=== PATIENT | male | born 1955 | race Caucasian/White ===

== ENCOUNTER 2016-03-19 10:41 | Observation (INO) | payer MEDICARE ==
[2016-03-19] MEDS ORDERED: ASPIRIN 81 MG TAB.CHEW PO ONE (10:49)
[2016-03-19] MEDS ORDERED: ASPIRIN 81 MG TAB.CHEW ONE (11:04)
[2016-03-19] MEDS ORDERED: NITROGLYCERIN 1 INCH PACKET TD ONE ×2 (11:04→11:09)
--- NOTE | 2016-03-19 11:04 | ERNOTE ---
Chest Pain/Cardiac HPI Date of Service: 03/19/16 Chief Complaint: Chest Pain Time Seen by Provider: 03/19/16 10:54 Source: patient Exam Limitations: no limitations Immunizations: IMMUNIZATION HX Immunizations Up to Date Yes History of Influenza Vaccine Yes Hx Pneumococcal Vaccination No Allergies/Adverse Reactions: Allergies lisinopril Adverse Reaction (Intermediate, Verified 03/19/16 10:54) FLIUD RETENTION pioglitazone HCl [From Actos] Adverse Reaction (Intermediate, Verified 03/19/16 10:54) fluid retention Home Medications: HOME MEDICATIONS Aspirin [Aspirin Chewable] 81 mg PO DAILY 06/20/12 [Last Taken Unknown] Hydrochlorothiazide [Hydrodiuril] 25 mg PO DAILY 06/20/12 [Last Taken Unknown] Losartan Potassium [Cozaar] 50 mg PO DAILY 06/20/12 [Last Taken Unknown] Multivitamin [Multivitamins] 1 each PO DAILY 06/20/12 [Last Taken Unknown] Insulin Aspart [Novolog] 55 unit SQ AC 08/17/12 [Last Taken Unknown] Glucagon,Human Recombinant [Glucagon Emergency Kit] 1 mg IJ PRN PRN 10/14/12 [ Last Taken Unknown] Insulin Glargine,Hum.rec.anlog [Lantus] 70 units SQ BID 09/11/14 [Last Taken Unknown] Nitroglycerin [Nitrostat] 0.4 mg SL Q5MIN PRN #0 btl 09/12/14 [Last Taken Unknown] Atorvastatin Calcium 80 mg PO HS 03/14/15 [Last Taken Unknown] Clopidogrel Bisulfate [Plavix] 75 mg PO DAILY 03/14/15 [Last Taken Unknown] metFORMIN HCL [Glucophage] 1,000 mg PO BID 03/14/15 [Last Taken Unknown] Insulin Aspart [Novolog] 1 units SC AC PRN 03/19/16 [Last Taken Unknown] Pain Score #1 Pain Score: 5 Narrative: 61yo M presents to the ER for evaluation of epigastric pain, present x3 hours. States he woke up with the pain this am and felt that it was indigestion. States he had eaten cheese at 0200 and thought this may have contributed to his symptoms. He attempted to improve symptoms by eating a bowl of cereal, but did not improve his symptoms. States pain initially 7/10, but 5/10 at present. Denies any radiation of pain. Although, he did have some pain in his back initially, but resolved with Ibuprofen and denies back pain at present. He does reports hx of ND and did have cardiac cath with 1 stent placed at [facility] in [place] 08/2014. BP elevated on arrival, pt states he did not take his BP meds this am due to pain. Date (Duration): 03/19/16 Time (Timing): 08:00 Timing: constant Location: epigastric Chest Pain Radiation: no radiation Modifying Factors - Improves: Present: nothing Modifying Factors - Worsens: Present: nothing Aspirin Treatment Today: no aspirin today Associated Symptoms: Present: diaphoresis. Absent: dizziness, syncope, cough, shortness of breath, fever/chills, palpitations, nausea, vomiting Prior Chest Pain/Cardiac Workup: Reports: heart attack - 1 yr ago Review of Systems - Review of Systems Constitutional: Present: diaphoresis. Absent: fever, chills Respiratory: Absent: shortness of breath, cough, wheezing Cardiology: Present: chest pain - epigastric pain, edema - chronic. Absent: palpitations, syncope Musculoskeletal: Present: back pain Skin: Absent: rash - Patient's Past Medical History Patient History - Medical: Anemia, Cataracts, Diabetes Type 2 Insulin Dependent , Kidney stone Patient History - Cancer: No Hx of Cancer Patient History - Surgical Procedures: Back Surgery, Other - Family History Adoption Family History - Medical: History Unknown - Social History Living Situations: home Smoking Status: Never smoker Alcohol Use: none Drug Use: none Physical Exam - Physical Exam General Appearance: Present: alert, obese, other - appears uncomfortable Respiratory: Present: no respiratory distress, normal breath sounds, no accessory muscle use, lungs clear. Absent: crackles, rhonchi, wheezing Cardiovascular/Chest: Present: regular rate, rhythm, no murmur Peripheral Pulses: N=norm/S=strong/W=weak/B=bound/A=absent: Dorsalis-pedis (R): Normal, Dorsalis-pedis (L): Normal Gastrointestinal/Abdominal: Present: normal bowel sounds, nontender, soft, other - obese Extremity Exam: Present: non-tender, pedal edema - 1+ (reports this as chronic) Neurological Exam: Present: alert, oriented ED Progress - Date and Time Seen: Date and Time: 03/19/16 1155: Spoke with Dr. Baxter, pt will be admitted to Tele observation. 03/19/16 11:35 Pt reports pain decreased to 2/10. Discussed with Dr. Mistry and due to pt cardiac hx, recommended admission for observation and repeat EKG, trop. This was discussed with the pt and he v/u. Metroprolol was held due to HR 50's - Results and Orders Patient's Lab Results:: I have reviewed the patient's lab results. Results and Orders: Laboratory Tests 03/19/16 11:02 WBC 6.3 RBC 3.67 L Hgb 11.4 L Hct 34.7 L MCV 94.6 MCH 31.1 H MCHC 32.9 RDW 13.9 MPV 10.3 H Laboratory Tests 03/19/16 11:02 Sodium 141 Potassium 4.0 Chloride 105 Carbon Dioxide 24.6 Anion Gap 15.4 H BUN 21 Creatinine 1.15 Est GFR (Non-Af Amer) 69 BUN/Creatinine Ratio 18.3 Random Glucose 285 H Calcium 9.3 Total Bilirubin 0.3 AST 21 Alkaline Phosphatase 123 Troponin I 0.024 Total Protein 6.9 - Vital Signs Patient's Vital Signs:: I have reviewed the patient's vital signs. Vital Signs: Vital Signs 03/19/16 10:48 Pulse Rate 66 Respiratory 16 Rate Blood Pressure 237/89 O2 Sat by Pulse 97 Oximetry Selected Entries 03/19/16 11:32 Pulse Rate 56 L Respiratory 17 Rate Blood Pressure 163/79 Blood Pressure 107 Mean O2 Sat by Pulse 96 Oximetry Oxygen Delivery Room Air Method - EKG EKG: NSR - with PVC EKG read: Reviewed by me - and Dr. Mistry - X-Ray X-Ray #1 X-Ray: chest Interpretation: Reviewed by me X-ray Comments: [facility] PATIENT RADIOLOGY STUDY REPORT Patient Patient Name:EMERALD DOMÍNGUEZ Date: 1955 Sex: M Order Number: [id number] Unique Exam ID: [id number] Exam Requested: CXRPALAT - Chest PA Lateral * Date Scheduled: Study Priority: Requesting Service: Requesting Physician: Maria Dolores Greene Reason for Exam: Radiological Report : Exam Date: 03/19/2016 10:50 Ordering Physician: Maria Dolores Greene HISTORY: Chest pain TWO VIEW CHEST Comparison: 03/14/2015 and 09/11/2014 Technique: Upright frontal and lateral views of the chest were obtained. Findings: The cardiac silhouette is within normal limits of size. The mediastinum and hilum are with in normal limits. The lung bo demonstrate fibrotic changes in the bases, similar to the prior study. I do not see evidence for a definable infiltrate, effusion, or pulmonary edema. IMPRESSION: 1. NO ACUTE CARDIOPULMONARY PROCESS. Electronically signed by Adan Hedrick M.D.. Approved by: Approval Date: 03-19-2016 Approval Time: 11:31 AM THIS REPORT WAS RECEIVED FROM THE [facility] [facility] [facility] - Progress/Reassessment Chief Complaint: Chest Pain Progress:: Improved Departure - Departure Clinical Impression: Chest pain Qualifiers: Chest pain type: unspecified Qualified Code(s): R07.9 - Chest pain, unspecified Disposition: [facility] Condition: Stable
[2016-03-19 11:08] LABS: Hematocrit 34.7 % (42.0-52.0); Hemoglobin 11.4 gm/dL (13.5-18.0); Mean Cell Volume 94.6 fl (78-100); Mean Corpuscular Hemoglobin 31.1 pg (27-31); Mean Corpuscular Hgb Conc 32.9 g/dl (32-36); Mean Platelet Volume 10.3 fl (6.0-9.5); Neutrophil % 62.4 % (42-75.0); Platelet Count 241 K/mm3 (150-450); Red Blood Count 3.67 M/mm3 (4.7-6.0); Red Cell Distribution Width 13.9 % (11.5-14.0); White Blood Count 6.3 K/mm3 (4.0-10.5)
[2016-03-19] MEDS: METOPROLOL TARTRATE 25 MG TABLET PO ONE ×2 (11:09→11:14)
[2016-03-19] MEDS ORDERED: METOPROLOL TARTRATE 25 MG TABLET ONE (11:09)
[2016-03-19 11:27] LABS: INR 0.96 INR (0.90-1.10); Partial Thrombolplastin Time 23.8 Seconds (24-32)
[2016-03-19 11:29] LABS: Albumin * 3.4 gm/dl (3.4-5.0); Anion Gap 15.4 mmol/L (6.8-13.8); BUN/Creatinine Ratio 18.3 (9.0-21.6); Bilirubin, Total 0.3 mg/dL (0.0-1.1); Ca. Corrected For Albumin 9.5 mg/dL (8.4-10.2); Calcium * 9.3 mg/dL (7.9-10.9); Carbon Dioxide 24.6 mmol/L (24-32.6); Total Protein 6.9 gm/dL (6.2-8.2)
[2016-03-19 11:32] LABS: Troponin I 0.024 ng/ml (0.00-0.10)
[2016-03-19 15:01] VITALS: BP 134/62
--- NOTE | 2016-03-19 17:53 | HP ---
Chief Complaint - Chief Complaint Date of Service: 03/19/16 Time of Service: 16:55 Chief Complaint: Chest Pain History of Present Illness: Beto is a 61 yo male with CAD with prior stent in 2014 who presents to the [facility] ER with epigastric pain. He awoke with chest pain. Reports ate cheese at 2am, reports activities yesterday were normal. No recent change in medication. No cough. No radiation of pain. No sweats, nausea, or shortness of breath. He presented to the ER and was given aspirin and nitro. Pain gradually resolved, he is unsure if it was better from the medication or resolved on its own. He currently feels well without symptoms. - Patient's Past Medical History Patient History - Medical: Anemia, Cataracts, Diabetes Type 2 Insulin Dependent , Kidney stone, Obesity Patient History - Cardiac/Respiratory: Myocardial Infarction Patient History - Cancer: No Hx of Cancer Patient History - Surgical Procedures: Back Surgery, Colonoscopy - Family History Adoption Family History - Medical: History Unknown - Social History Living Situations: home Smoking Status: Never smoker Have you smoked in the past 12 months: No Do you dip or chew tobacco: No Patient requests Smoking Cessation Consult: No Initiate information on Smoking Cessation: No Alcohol Use: none Drug Use: none Review Of Systems (GEN) - Review of Systems Generalized/Overall Review: Absent: Weakness, Chills, Fever EENTM: Present: No Symptoms Reported Respiratory: Absent: Cough, Shortness of Breath Cardiac: Present: Chest Pain. Absent: Edema, Palpitations Abdominal: Absent: Nausea, Vomiting Genitourinary: Present: No Symptoms Reported Musculoskeletal: Present: Back Pain Neurological: Present: No Symptoms Reported Skin: Present: No Symptoms Reported Endocrine: Present: No Symptoms Reported Misc: All systems neg except as marked Allergies/Adverse Reactions: Allergies Allergy/AdvReac Type Severity Reaction Status Date / Time [id number] Reductase AdvReac Severe Muscle Pain Verified 03/19/16 13:34 Inhibitor lisinopril AdvReac Intermediate FLIUD Verified 03/19/16 13:34 RETENTION pioglitazone HCl [From Actos] AdvReac Intermediate fluid Verified 03/19/16 13:34 retention Home Medications: HOME MEDICATIONS Aspirin [Aspirin Chewable] 81 mg PO DAILY 06/20/12 [Last Taken Unknown] Hydrochlorothiazide [Hydrodiuril] 25 mg PO DAILY 06/20/12 [Last Taken Unknown] Losartan Potassium [Cozaar] 50 mg PO DAILY 06/20/12 [Last Taken Unknown] Multivitamin [Multivitamins] 1 each PO DAILY 06/20/12 [Last Taken Unknown] Insulin Aspart [Novolog] 55 unit SQ AC 08/17/12 [Last Taken Unknown] Glucagon,Human Recombinant [Glucagon Emergency Kit] 1 mg IJ PRN PRN 10/14/12 [ Last Taken Unknown] Insulin Glargine,Hum.rec.anlog [Lantus] 85 units SQ BID 09/11/14 [Last Taken Unknown] Nitroglycerin [Nitrostat] 0.4 mg SL Q5MIN PRN #0 btl 09/12/14 [Last Taken Unknown] Atorvastatin Calcium 100 mg PO HS 03/14/15 [Last Taken Unknown] metFORMIN HCL [Glucophage] 1,000 mg PO BID 03/14/15 [Last Taken Unknown] Calcium Carb&Cit/D3/Phytostrol [Citracal D + Heart Health Tab] 1 each PO DAILY 03/19/16 [Last Taken Unknown] Exam - Exam Vital Signs: Vital Signs - Last Taken Temp 36.4 C L 03/19/16 14:10 Pulse 51 L 03/19/16 14:10 Resp 18 03/19/16 14:10 BP 134/62 03/19/16 14:10 Pulse Ox 98 03/19/16 14:10 Constitutional: Present: Alert, Oriented x3, Cooperative ENT Exam: Present: hearing grossly normal Eye Exam: bilateral eye: normal inspection Respiratory: Present: lungs clear, normal breath sounds Cardiovascular/Chest: Present: regular rate, rhythm, no murmur Abdomen: Present: Normal bowel sounds, soft, nontender, nondistended, no rebound tenderness, no hepatospenomegaly Extremity: Present: normal range of motion, non-tender, normal inspection, no pedal edema Skin Exam: Present: normal color, warm/dry, no cyanosis Neurologic: Present: alert, normal mood/affect, oriented x 3 Appearance: Present: appropriate appearance, appropriate insight Thoughts: Present: normal thought pattern, no apparent hallucination Diagnostic Studies: Laboratory Results WBC 6.3 K/mm3 (4.0-10.5) 03/19/16 11:02 RBC 3.67 M/mm3 (4.7-6.0) L 03/19/16 11:02 Hgb 11.4 gm/dL (13.5-18.0) L 03/19/16 11:02 Hct 34.7 % (42.0-52.0) L 03/19/16 11:02 MCV 94.6 fl (78-100) 03/19/16 11:02 MCH 31.1 pg (27-31) H 03/19/16 11:02 MCHC 32.9 g/dl (32-36) 03/19/16 11:02 RDW 13.9 % (11.5-14.0) 03/19/16 11:02 Plt Count 241 K/mm3 (150-450) 03/19/16 11:02 MPV 10.3 fl (6.0-9.5) H 03/19/16 11:02 Immature Gran % (Auto) 0.30 % (0.001-0.429) 03/19/16 11:02 Immature Gran # (Auto) 0.02 K/mm3 (0.000-0.0310) 03/19/16 11:02 Neutrophils % 62.4 % (42-75.0) 03/19/16 11:02 Lymphocytes % 25.6 % (20-51) 03/19/16 11:02 Monocytes % 5.8 % (0.0-9) 03/19/16 11:02 Eosinophils % 4.6 % (0.0-3.0) H 03/19/16 11:02 Basophils % 1.3 % (0.0-1.0) H 03/19/16 11:02 Nucleated RBC % 0.0 k/mm3 (0-1) 03/19/16 11:02 Neutrophils # 4.0 K/mm3 (1.3-6.0) 03/19/16 11:02 Lymphocytes # 1.6 k/mm3 (1.5-3.5) 03/19/16 11:02 Monocytes # 0.4 k/mm3 (0.0-1.0) 03/19/16 11:02 Eosinophils # 0.3 k/mm3 (0.0-0.7) 03/19/16 11:02 Absolute Basophils 0.1 k/mm3 (0.0-0.1) 03/19/16 11:02 PT 10.0 Seconds (9.4-11.4) 03/19/16 11:02 INR (Anticoag Therapy) 0.96 INR (0.90-1.10) 03/19/16 11:02 PTT (Amelie) 23.8 Seconds (24-32) L 03/19/16 11:02 Sodium 141 mmol/L (132-142) 03/19/16 11:02 Plasma Sodium 144 mmol/L (130-142) H 03/19/16 11:02 Potassium 4.0 mmol/L (3.4-4.6) 03/19/16 11:02 Chloride 105 mmol/L (97-106) 03/19/16 11:02 Carbon Dioxide 24.6 mmol/L (24-32.6) 03/19/16 11:02 Anion Gap 15.4 mmol/L (6.8-13.8) H 03/19/16 11:02 BUN 21 mg/dL (6-23) 03/19/16 11:02 Creatinine 1.15 mg/dL (0.4-1.4) 03/19/16 11:02 Est GFR (Non-Af Amer) 69 mL/min (60-130) 03/19/16 11:02 BUN/Creatinine Ratio 18.3 (9.0-21.6) 03/19/16 11:02 Random Glucose 285 mg/dL (70-110) H 03/19/16 11:02 Calcium 9.3 mg/dL (7.9-10.9) 03/19/16 11:02 Calcium Adj for Albumin 9.5 mg/dL (8.4-10.2) 03/19/16 11:02 Total Bilirubin 0.3 mg/dL (0.0-1.1) 03/19/16 11:02 AST 21 U/L (0-48) 03/19/16 11:02 ALT 42 U/L (19-67) 03/19/16 11:02 Alkaline Phosphatase 123 U/L (50-170) 03/19/16 11:02 Troponin I 0.024 ng/ml (0.00-0.10) 03/19/16 17:10 Total Protein 6.9 gm/dL (6.2-8.2) 03/19/16 11:02 Albumin 3.4 gm/dl (3.4-5.0) 03/19/16 11:02 Assessment/Plan - Assessment/Plan (1) Chest pain Assessment: Beto is a 61 yo male with chest pain of unknown origin. Suspect heart burn/reflux as cause. Will obtain serial troponins and monitor on telemetry. If ruled out for acute MN will plan to discharge to home. Will admit to observation. Problem: Acute
--- NOTE | 2016-03-19 17:55 | DS ---
(1) Chest pain Diagnosis(s): Beto is a 61 yo male that was admitted for chest pain with history of prior [place]. Initial workup was negative for acute AZ. He was admitted to observation. Serial troponins showed no acute elevation and there was no change on telemetry or EKG. He will be discharged to home. Problem: Acute Qualifiers: Chest pain type: other chest pain Qualified Code(s): R07.89 - Other chest pain; R07.8 - Other chest pain Procedures Performed: none Discharge Disposition: Home self care Disposition: Home self-care Condition: Good Discharge Activity: Activity as tolerated Discharge Diet: Consistent carbs Referrals: Carlos Baxter DO [Primary Care Provider] - (as needed) Problem Oriented Discharge Instructions to Patient/Family: Chest Pain Observation Complete Home Medications List: Complete Home Medication List: Aspirin [Aspirin Chewable] 81 mg PO DAILY 06/20/12 Hydrochlorothiazide [Hydrodiuril] 25 mg PO DAILY 06/20/12 Losartan Potassium [Cozaar] 50 mg PO DAILY 06/20/12 Multivitamin [Multivitamins] 1 each PO DAILY 06/20/12 Insulin Aspart [Novolog] 55 unit SQ AC 08/17/12 Glucagon,Human Recombinant [Glucagon Emergency Kit] 1 mg IJ PRN PRN 10/14/12 Insulin Glargine,Hum.rec.anlog [Lantus] 85 units SQ BID 09/11/14 Nitroglycerin [Nitrostat] 0.4 mg SL Q5MIN PRN #0 btl 09/12/14 Atorvastatin Calcium 100 mg PO HS 03/14/15 metFORMIN HCL [Glucophage] 1,000 mg PO BID 03/14/15 Calcium Carb&Cit/D3/Phytostrol [Citracal D + Heart Health Tab] 1 each PO DAILY 03/19/16
== END 2016-03-19 18:40 | disposition home or self-care (01) ==
LOC: ER 10:41 → MS 12:01
PROVIDERS: ADMIT Family Medicine; ATTEND Family Medicine
DX: R07.9 Chest pain, unspecified (principal)
CPT/HCPCS: 36415; 71020; 80053; 84484; 85025; 85610; 85730; 93005; 99284; G0378

== ENCOUNTER 2016-12-06 13:34 | Emergency (ER) | payer MEDICARE ==
[2016-12-06 13:49] VITALS: BP 144/50
== END 2016-12-06 13:47 | disposition home or self-care (01) ==
LOC: ER 13:34
DX: Z13.6 Encounter for screening for cardiovascular disorders (principal)

== ENCOUNTER 2017-05-10 06:40 | Inpatient (IN) | payer MEDICARE ==
[~2017-05-10 06:40] MED LIST: MORPHINE SULFATE 15 MG TABLET.SA PO PRN; ROPIVACAINE HCL/PF 100 MG, KETOROLAC TROMETHAMINE 30 MG, EPINEPHrine 0.2 MG in NORMAL S... IJ PRN; TRANEXAMIC ACID 1,000 MG in NORMAL SALINE 100 ML IV PRN; ceFAZolin SODIUM 1 GM VIAL IV PRN
[2017-05-10] MEDS: RINGER'S SOLUTION,LACTATED 1,000 ML IV PRN ×2 (07:13→07:40)
[2017-05-10] MEDS ORDERED: RINGER'S SOLUTION,LACTATED 1,000 ML IV ONE ×3 (08:30→09:45)
--- NOTE | 2017-05-10 10:19 | POSTOP NO ---
Date of Surgery: 05/10/17 Patient Tolerated the Procedure: Well Post Operative Diagnosis/Procedures: Shoe Sewing Machine Operator And Tender: Saul Vickers PA-C Post-operative Diagnosis: Right knee degenerative joint disease Finding: Above Procedure: Right total knee arthroplasty Estimated Blood Loss: Minimal Specimens: Bone for disposal
--- NOTE | 2017-05-10 10:20 | OR ---
Operative Report - Dictated Report Narrative: Date: 05/10/2017 Preoperative diagnosis: Right Knee degenerative joint disease. Postoperative diagnosis: Right Knee degenerative joint disease. Procedure: Right Total knee arthroplasty. Surgeon: Mark Wilkinson M.D. Crab Fisher: Saul Vickers PA-C Anesthesia: Spinal with regional block and local periarticular joint injection. Complications: None Specimens: Bone for disposal. Estimated blood loss: Minimal. Tourniquet time: 110 Minutes at 350 millimeters of mercury. Retained implants: Depuy Attune size 8 right lugged cemented posterior stabilized femoral component. Size 7 fixed-bearing cemented tibial platform. 8 by 5 millimeter posterior stabilized cross-linked tibial insert. 41 millimeter medialized patella button. Indications: Mr. Cabezas is a 62-year-old gentleman who has had long-standing right knee pain. This patient was followed in my clinic for period of time with significant complaints of right knee pain consistent with arthritic changes. He had failed conservative measures including, but not limited to, activity modification, passage of time, medications, and other conservative measures. Patient wished to proceed with surgical treatment. The risks, benefits, and alternatives were discussed in clinic. The risks of , blood clots, bleeding, infection, nerve/tendon blood vessel/ injury, malposition of components, intraoperative fracture, postoperative limited range of motion, persistent pain, failure of components, and need for additional procedures. Patient wished to proceed consent was obtained after answering all questions. Procedure: After marking the correct extremity on the floor, the patient was taken to the operating room. A timeout was performed. IV antibiotics consisting of Ancef were administered prior to the procedure. A regional followed by spinal anesthetic was induced by anesthesia, per my request, on the operative table with all bony prominences well-padded. Harris catheter was placed, and a bump was placed under the operative side buttock. SCDs and VON hose were utilized on the nonoperative leg. A well-padded tourniquet was applied to the operative thigh. The operative leg was then pre-scrubbed with alcohol prepped, and draped in a standard sterile fashion. After exsanguinating the extremity with an Esmarch bandage, the tourniquet was inflated. After marking out the anterior knee for standard incision centered over the patella, the skin was incised and dissected down to the joint retinaculum. The joint retinaculum was marked out as well as the horizontal axis of the patella, and a standard medial parapatellar arthrotomy was then made. The most proximal aspect of the quadriceps tendon and the patella tendon insertion were protected from release. A partial synovectomy was performed as well as a resection of the infrapatellar fat pad. The distal femoral fat pad proximal to the trochlea was also resected using cautery. The soft tissues were elevated off the medial aspect of the proximal tibia using a Douglas elevator ensuring that we did not transect the medial collateral ligament. Upon initial evaluation range of motion was approximately 10 degrees to 130 degrees of flexion. There were signs of advanced arthrosis in the medial, lateral, and patellofemoral joint spaces. There were large marginal osteophytes which were removed with a rongeur. The knee was hyperflexed and the patella was tucked laterally. Protecting the surrounding soft tissues with Homans, an entry drill was placed down the femoral canal using Whitesides line for guidance into the entry point. The intramedullary femoral alignment adina was utilized in order to cut the distal femur in 5 degrees of valgus resecting 10 millimeters of bone. Next the distal femur was sized to a size 8. A posterior referencing guide was utilized to place the distal femoral cutting block in 3 degrees of external rotation. This was pinned into place. The rotation was confirmed both visually and based on anatomic landmarks. The 4 in 1 cutting jig of the appropriate size was utilized in order to make all bony cuts. The angle wing was used to ensure no notching. Retractors were utilized in order to protect surrounding soft tissues. This cut did not result in any excessive notching. We then cut the box centered over the distal femur. This allowed for resection of the anterior and posterior cruciate ligaments. I then turned my attention to the preparation of the tibia. Using an extra medullary tibial alignment adina, 4 millimeters of bone was resected off the medial articular surface. This was made perpendicular to the mechanical axis of the joint with the alignment adina centered over the ankle mortise. The alignment adina was checked and was noted to be parallel to the mechanical axis, centered over the medial one third of the tibial tubercle, paralleling the anterior surface of the tibia. We then turned our attention to the remaining meniscus and soft tissues. These were removed while protecting the surrounding ligaments and soft tissues. The marginal osteophytes off the anterior, posterior, medial, lateral aspects of the femur and tibia were removed. The tibia was sized out to a size 7. Next the tibia was drilled and punched in an externally rotated position. Next the trial femur and a series of tibial inserts were utilized in order to allow for full extension and maximal flexion. It was found that a 5 millimeter insert gave the best range of motion and stability at multiple flexion points as well as at full extension there was less than 2 mm of gapping both medially and laterally. There is minimal anterior translation with the knee at 90 degrees of flexion and no signs of being able to dislocate the knee. The patella was then prepared. The initial thickness was 25 millimeters. This was reamed down to 15 millimeters parallel to the anterior surface of the patella. It was sized out to a size 41 medialized patella button. This was then drilled and trialed. Without any medial restraint the patella tracked appropriately and did not sublux or dislocate. At this point, it was felt these were the appropriate sized implants, and all trials were removed. The standard periarticular joint injection consisting of ropivacaine, Toradol, and epinephrine were injected into the periarticular joint tissues. The bony surfaces were thoroughly irrigated with a pulsatile- suction saline irrigation device. A bone plug from the prior resected anterior chamfer cut was placed into the drill hole at the distal femur. The bony surfaces were then dried in preparation for placement of the implants. The cement was vacuum mixed per the sterile processing manager's instructions. The cement was placed on the dry bony surfaces and posterior aspect of the implants. The implants were impacted into place, removing all extruded cement. At this point anesthesia administered tranexamic acid per protocol intravenously. The knee was placed in extension with axial loading with the trial insert while the cement cured. Once the cement cured, all remaining extruded cement was removed. The knee was placed through a range of motion with the trial insert to ensure appropriate range of motion and stability. Final range of motion was approximately 0 to 130 degrees. The knee was again thoroughly irrigated with pulsatile saline lavage. The final polyethylene insert was then impacted into place ensuring no retained soft tissues. The remaining periarticular joint injection was injected. A medium Hemovac drain was placed exiting superior laterally. The knee was then placed over a triangle and the arthrotomy was closed with interrupted #1 Vicryl after thoroughly irrigating the joint. The deep and subcutaneous tissues were closed with interrupted 0 and 3-0 Vicryl respectively. Skin was closed with a running subcutaneous 3-0 Monocryl and Prineo Dermabond dressing. 4 x 4's, Sof-Rol, and a full leg Bao wrap were applied. All sponge, needle, blade, and instrument counts were correct prior to closing the wounds. Postoperative condition: The patient was awoken and transferred to the postanesthesia care unit in stable condition. Plan is to be admitted to the inpatient medical/surgical floor postoperatively for 24 hours of IV antibiotics , physical therapy, occupational therapy, and medical comanagement. Patient will be weightbearing as tolerated with range of motion as tolerated. DVT prophylaxis will be with SCDs, VON hose, and pharmacological anticoagulation. Anticipated hospital stay is approximately 1-3 days.
[2017-05-10] MEDS ORDERED: ACETAMINOPHEN 500 MG TABLET PO PRN (10:21)
[2017-05-10] MEDS ORDERED: PROMETHAZINE HCL 5 MG in DEXTROSE 5 % IN WATER 50 ML IV PRN ×2 (10:21)
[2017-05-10] MEDS ORDERED: ONDANSETRON HCL/PF 2 MG/ML VIAL IV PRN (10:21)
[2017-05-10] MEDS ORDERED: ZOLPIDEM TARTRATE 5 MG TABLET PO PRN (10:21)
[2017-05-10] MEDS ORDERED: MAG HYDROX/ALUMINUM HYD/SIMETH 30 ML UDC PO PRN (10:21)
[2017-05-10] MEDS ORDERED: RINGER'S SOLUTION,LACTATED 1,000 ML IV PRN (10:21)
[2017-05-10] MEDS ORDERED: HYDROmorphone HCL 2 MG/ML VIAL IV PRN (10:21)
[2017-05-10] MEDS ORDERED: MAGNESIUM HYDROXIDE 30 ML UDC PO PRN (10:21)
[2017-05-10] MEDS ORDERED: diphenhydrAMINE HCL 50 MG/ML VIAL IV PRN (10:21)
[2017-05-10] MEDS ORDERED: NITROGLYCERIN 0.4 MG/TAB BTL SL PRN (10:22)
--- NOTE | 2017-05-10 10:52 | OR ---
Anesthesia Procedure Note - Anesthesia Procedure Note Date of Service: 05/10/17 Narrative: Vital Signs - Last Taken Temp 36.5 C 05/10/17 10:30 Pulse 60 05/10/17 10:40 Resp 14 05/10/17 10:40 BP 109/50 05/10/17 10:40 Pulse Ox 97 05/10/17 10:40 O2 Oxygen Delivery Method Nasal Cannula 05/10/17 10:49 ANESTHESIA PROCEDURE NOTE Date of Procedure: 05/10/2017. Time of procedure: 739. Performed by: Dilip Dixon CRNA [employer]ling [employer] Supervisor: None. Preprocedure diagnosis: Right knee degenerative joint disease. Post procedure diagnosis: Same. Procedure: Right ultrasound guided adductor canal block for postoperative analgesia. Indications: The patient is a 62 -year-old male, requesting a right ultrasound- guided adductor canal block for postoperative analgesia related to right knee arthroplasty. Findings: See below. Details of the procedure: The tissue over the intended target site was cleansed with ChloraPrepand draped in a sterile fashion. 2 ml Lidocaine 1 % was infiltrated to the skin and subcutaneous tissue at the intended target site. Under sterile technique and ultrasound guidance a 18-gauge Tuohy needle was inserted through the right sartorius muscle to the saphenous nerve just anterior and medial to the femoral artery and vein. 15 mL's of 0.5% bupivacaine was injected after negative aspiration for blood. Needle tip and spread of local anesthetic surrounding the saphenous nerve was observed throughout the injection with real time ultrasound visualization. The Tuohy needle was removed intact. No complications were noted. The images were retained in the Hospital medical database . EBL: Minimal. Fluids: N/A. Specimen: N/A. Post procedure condition: The patient tolerated the procedure well. No complications were noted. Thank you for this consultation. Dilip Dixon CRNA
[2017-05-10] MEDS ORDERED: INSULIN LISPRO 100 UNITS/ML VIAL SC SCH ×2 (11:00→12:45)
[2017-05-10] MEDS: KETOROLAC TROMETHAMINE 15 MG/ML VIAL IV SCH ×3 (11:15→23:03)
[2017-05-10] MEDS ORDERED: INSULIN GLARGINE,HUM.REC.ANLOG 100 UNITS/ML VIAL SC SCH ×2 (13:45→21:00)
[2017-05-10] MEDS: ceFAZolin SODIUM 1 GM in DEXTROSE 5 % IN WATER 50 ML IV SCH ×4 (14:10→19:12)
[2017-05-10] MEDS: oxyCODONE HCL/ACETAMINOPHEN 1 TAB TABLET PO PRN (15:42)
--- NOTE | 2017-05-10 16:33 | PN ---
Subjective - Date and Time Seen Date: 05/10/17 Time: 16:33 Subjective Narrative: Doing well. Blood sugars controlled. Pain controlled. Denies f/c/n/v. Objective - Vitals Vitals: Last Vital Signs Temp 36.4 C L 05/10/17 16:02 Pulse 56 L 05/10/17 16:02 Resp 14 05/10/17 16:02 BP 111/57 05/10/17 16:02 Pulse Ox 98 05/10/17 16:02 - Exam Constitutional: Present: Alert, Oriented x3, Cooperative, No distress Respiratory: Present: lungs clear, normal breath sounds Cardiovascular/Chest: Present: regular rate, rhythm, no murmur Abdomen: Present: Normal bowel sounds, soft, nontender, nondistended Cauti Physician Documentation - Urinary Catheter Management Urethral (Harris) Date of Insertion: 05/10/17 Time of Insertion: 08:15 Assessment/Plan Plan Narrative: Doing well medically. Sugars under fair control. No medical concerns. Ok with discharge once ok per PT and ortho. - Problems/Diagnosis (1) Acute blood loss anemia Problem: Acute (2) Status post total right knee replacement Problem: Acute
[2017-05-10] MEDS: INSULIN LISPRO 100 UNITS/ML VIAL SC SCH (17:14)
[2017-05-10] MEDS: CLOBETASOL PROPIONATE 15 APPL TUBE TP SCH (20:36)
[2017-05-10] MEDS: SENNOSIDES/DOCUSATE SODIUM 1 TAB TABLET PO SCH (20:36)
[2017-05-10] MEDS: MORPHINE SULFATE 15 MG TABLET.SA PO SCH (20:36)
[2017-05-10] MEDS: ATORVASTATIN CALCIUM 40 MG TABLET PO SCH (20:37)
[2017-05-10] MEDS ORDERED: INSULIN GLARGINE,HUM.REC.ANLOG 100 UNITS/ML VIAL SC ONE (21:00)
[2017-05-11] MEDS: ceFAZolin SODIUM 1 GM in DEXTROSE 5 % IN WATER 50 ML IV SCH ×2 (01:14)
[2017-05-11] MEDS: KETOROLAC TROMETHAMINE 15 MG/ML VIAL IV SCH ×4 (05:23→23:19)
[2017-05-11 05:57] LABS: Hematocrit 33.8 % (42.0-52.0); Mean Cell Volume 94.7 fl (78-100); Mean Corpuscular Hemoglobin 30.8 pg (27-31); Mean Corpuscular Hgb Conc 32.5 g/dl (32-36); Mean Platelet Volume 10.4 fl (6.0-9.5); Platelet Count 255 K/mm3 (150-450); Red Blood Count 3.57 M/mm3 (4.7-6.0); Red Cell Distribution Width 13.9 % (11.5-14.0); White Blood Count 10.6 K/mm3 (4.0-10.5)
[2017-05-11 06:09] LABS: Anion Gap 11.8 mmol/L (6.8-13.8); BUN/Creatinine Ratio 22.6 (9.0-21.6); Calcium * 8.6 mg/dL (7.9-10.9); Carbon Dioxide 29.3 mmol/L (24-32.6); Estimated Creat Clear 67.9; Potassium 4.1 mmol/L (3.4-4.6)
[2017-05-11] MEDS: INSULIN LISPRO 100 UNITS/ML VIAL SC SCH ×3 (07:23→17:38)
[2017-05-11] MEDS: oxyCODONE HCL/ACETAMINOPHEN 1 TAB TABLET PO PRN ×2 (07:23→12:10)
[2017-05-11] MEDS ORDERED: ONDANSETRON 4 MG TAB.RAPDIS PO PRN (07:30)
--- NOTE | 2017-05-11 08:04 | PN ---
Subjective - Date and Time Seen Date: 05/11/17 Time: 08:01 Subjective Narrative: Subjective: Reports mild pain and some difficulty sleeping. Was able to walk in the room with therapy. Pain is well-controlled. Voiding without any complications. Tolerating by mouth intake. Denies any nausea or vomiting. Denies calf pain. Physical exam: Alert and oriented to person, place and time Right lower Extremity: Palpable dorsalis pedis pulse. Sensation grossly intact to light touch. Dressings clean dry. Able to flex and extend ankle and toes. No excessive drainage. Calf and thigh are soft and nontender. Assessment: Postop day 1 status post right total knee arthroplasty. Plan: Due to the need for pain control, post-operative limited mobility, protection of the surgical site and joint, monitoring of the wound, and the management of chronic medical conditions, he requires continued inpatient care. Continue with physical and occupational therapy weightbearing as tolerated. Continue with anticoagulation. 24 hours postoperative prophylactic antibiotics. Pain control with goal to rely on oral medications. Continue bowel regimen. Will need 6 weeks with walker or assitive device to protect joint while ambulating during the recovery process. Discharge planning. Discontinue Harris catheter. She had noted drainage from his drain and we'll clamp his prior and monitor for decreased output before pulling. Objective - Vitals Vitals: Last Vital Signs Temp 36.7 C 05/11/17 05:43 Pulse 75 05/11/17 05:43 Resp 18 05/11/17 05:43 BP 159/78 05/11/17 05:43 Pulse Ox 97 05/11/17 05:43 - Abnormal Lab Findings Abnormal Lab Findings: Abnormal Lab Results 05/11/17 05/11/17 Range/Units 05:20 05:20 WBC 10.6 H (4.0-10.5) K/mm3 RBC 3.57 L (4.7-6.0) M/mm3 Hgb 11.0 L (13.5-18.0) gm/dL Hct 33.8 L (42.0-52.0) % MPV 10.4 H (6.0-9.5) fl BUN 28 H D (6-23) mg/dL BUN/Creatinine Ratio 22.6 H (9.0-21.6) Random Glucose 128 H (70-110) mg/dL Cauti Physician Documentation - Urinary Catheter Management Urethral (Harris) Date of Insertion: 05/10/17 Time of Insertion: 08:15
[2017-05-11] MEDS: CLOBETASOL PROPIONATE 15 APPL TUBE TP SCH ×2 (08:19→20:52)
[2017-05-11] MEDS: HYDROCHLOROTHIAZIDE 25 MG TABLET PO SCH (08:20)
[2017-05-11] MEDS: MULTIVITAMINS 1 CAP CAPSULE PO SCH (08:20)
[2017-05-11] MEDS: TAZAROTENE TP SCH (08:20)
[2017-05-11] MEDS: LOSARTAN POTASSIUM 50 MG TABLET PO SCH (08:20)
[2017-05-11] MEDS: INSULIN GLARGINE,HUM.REC.ANLOG 100 UNITS/ML VIAL SC SCH ×2 (08:24→20:53)
[2017-05-11] MEDS: MORPHINE SULFATE 15 MG TABLET.SA PO SCH ×2 (08:29→20:51)
[2017-05-11] MEDS: ENOXAPARIN SODIUM 40 MG/0.4 ML SYRG SC SCH (10:02)
[2017-05-11] MEDS: ATORVASTATIN CALCIUM 40 MG TABLET PO SCH (20:51)
[2017-05-11] MEDS: SENNOSIDES/DOCUSATE SODIUM 1 TAB TABLET PO SCH (20:51)
[2017-05-12] MEDS: KETOROLAC TROMETHAMINE 15 MG/ML VIAL IV SCH (04:38)
[2017-05-12] MEDS: oxyCODONE HCL/ACETAMINOPHEN 1 TAB TABLET PO PRN ×4 (04:58→18:17)
[2017-05-12] MEDS: INSULIN LISPRO 100 UNITS/ML VIAL SC SCH ×3 (07:23→17:36)
[2017-05-12] MEDS: MORPHINE SULFATE 15 MG TABLET.SA PO SCH (09:45)
[2017-05-12] MEDS: LOSARTAN POTASSIUM 50 MG TABLET PO SCH (09:45)
[2017-05-12] MEDS: HYDROCHLOROTHIAZIDE 25 MG TABLET PO SCH (09:45)
[2017-05-12] MEDS: MULTIVITAMINS 1 CAP CAPSULE PO SCH (09:45)
[2017-05-12] MEDS: INSULIN GLARGINE,HUM.REC.ANLOG 100 UNITS/ML VIAL SC SCH (09:46)
[2017-05-12] MEDS: ENOXAPARIN SODIUM 40 MG/0.4 ML SYRG SC SCH (09:47)
[2017-05-12] MEDS: CLOBETASOL PROPIONATE 15 APPL TUBE TP SCH (09:47)
[2017-05-12] MEDS: TAZAROTENE TP SCH (09:47)
--- NOTE | 2017-05-12 14:00 | DS ---
(1) Status post total right knee replacement Problem: Acute (2) Acute blood loss anemia Problem: Acute (3) Diabetes mellitus treated with insulin and oral medication Problem: Chronic (4) Hyperlipidemia Problem: Chronic (5) Hypertension Problem: Chronic (6) Morbid obesity Problem: Chronic Description of Stay: Mr. Cabezas was admitted to the floor after undergoing right total knee arthroplasty. Tolerated this well. Was admitted to the floor postoperatively for 24 hours of IV antibiotics, pain control, medical comanagement, and occupational and physical therapy. OT and PT were consulted to assist with activities of daily living and ambulation. Was made weightbearing as tolerated with range of motion as tolerated. Pain was initially controlled with IV regimen. This was transitioned to oral once tolerating a by mouth intake. Was resumed on home diet and medications. Had a Harris catheter inserted and the operating room which was discontinued on postoperative day 1. A drain was placed intraoperatively into the knee which was discontinued on postoperative day 2 as he had some noted drainage which decreased. Lovenox SCD and VON hose were utilized for DVT prophylaxis. Vital signs remained stable to the hospital course. Labs were obtained which showed a final hemoglobin of 11.0 grams. BMP was reviewed and was stable. Physical examination throughout the hospital course showed an extremity that had sensation that was intact to light touch, palpable pulses, a benign wound, motor intact to the toes, ankle, and knee. Knee range of motion was approximately 10 degrees to 70 degrees. Once an oral pain regimen was tolerated and physical therapy goals were met, it was felt that they were stable for discharge to home. Instructions: Continue with weightbearing as tolerated and range of motion as tolerated. It is okay to shower and get the wound wet as long as there is no drainage from the wound. Do not bathe or soak the wound. If there is any drainage from the wound keep the wound clean and dry and cover with dry gauze and tape. Change every 2-3 days as needed if there is any drainage. Cover wound while showering if there is any drainage. Continue with physical therapy. Resume home diet. Report any fever over 101.5 Fahrenheit, uncontrolled pain, increased drainage, foul odor of drainage, new or increased calf pain or shortness of breath, or any other significant complaints. A 325mg dialy aspirin will be started after finishing anticoagulation if not allergic. Continue with VON hose on the operative extremity until instructed otherwise. No driving until instructed otherwise. Follow up in approximately 10-14 days. Procedures Performed: see notes below List Procedures: Right total knee arthroplasty Discharge Location: Home w [facility] Home Health Disposition: Home Health Service Condition: Good Discharge Activity: Activity as tolerated, Weight bearing Discharge Diet: Consistent carbs Referrals: Carlos Baxter DO [Primary Care Provider] - Additional Patient Instructions (free text): Follow up with Dr. Wilkinson 05/25 at 9:45 Prescriptions (Any new or edited meds): Enoxaparin Sodium [Lovenox] 40 mg SC Q24H #7 disp.syrin Morphine Sulfate [Ms Contin] 15 mg PO Q12H #20 tablet.sa oxyCODONE HCL/ACETAMINOPHEN [Percocet 5 MG/325 MG] 2 tab PO Q4H PRN #60 tablet PRN Reason: Moderate Pain (Pain Scale 4-6) Sennosides/Docusate Sodium [Senokot-S] 2 tab PO HS #60 tablet Complete Home Medications List: Complete Home Medication List: Hydrochlorothiazide [Hydrodiuril] 25 mg PO DAILY 06/20/12 Multivitamin [Multivitamins] 1 each PO DAILY 06/20/12 Insulin Aspart [Novolog] 55 unit SQ AC 08/17/12 Glucagon,Human Recombinant [Glucagon Emergency Kit] 1 mg IJ PRN PRN 10/14/12 Insulin Glargine,Hum.rec.anlog [Lantus] 80 units SQ BID 09/11/14 Nitroglycerin [Nitrostat] 0.4 mg SL Q5MIN PRN #0 btl 09/12/14 metFORMIN HCL [Glucophage] 1,000 mg PO BID 03/14/15 Atorvastatin Calcium 80 mg PO HS 04/28/17 Clobetasol Propionate/Emoll [Clobetasol Emollient 0.05% Crm] 15 gm TP BID Losartan Potassium [Cozaar] 100 mg PO DAILY 04/28/17 Tazarotene [Tazorac] 30 gm TP DAILY 04/28/17 Enoxaparin Sodium [Lovenox] 40 mg SC Q24H #7 disp.syrin 05/12/17 Morphine Sulfate [Ms Contin] 15 mg PO Q12H #20 tablet.sa 05/12/17 Sennosides/Docusate Sodium [Senokot-S] 2 tab PO HS #60 tablet 05/12/17 oxyCODONE HCL/ACETAMINOPHEN [Percocet 5 MG/325 MG] 2 tab PO Q4H PRN #60 tablet 05/12/17 Amb Orders for Discharge: PT Evaluation and Treatment Facility: [facility], Location: Rehabilitation Services
[2017-05-12 19:01] VITALS: BP 175/71
== END 2017-05-12 18:55 | disposition home health service (06) | DRG 470 ==
LOC: MS 06:40 → EDSTATUS 08:00
PROVIDERS: ADMIT Orthopaedic Surgery; ATTEND Orthopaedic Surgery
PROC: 0SRC0J9 Replacement of Right Knee Joint with Synthetic Substitute, Cemented, Open Approach (ICD-10-PCS; principal; 2017-05-10)
DX: Z79.4 Long term (current) use of insulin; E66.01 Morbid (severe) obesity due to excess calories; Z87.891 Personal history of nicotine dependence; Z79.82 Long term (current) use of aspirin; Z68.41 Body mass index [BMI] 40.0-44.9, adult; M17.11 Unilateral primary osteoarthritis, right knee; I10 Essential (primary) hypertension; D62 Acute posthemorrhagic anemia; Z88.8 Allergy status to other drugs, medicaments and biological substances; E11.9 Type 2 diabetes mellitus without complications

== ENCOUNTER 2017-12-13 12:12 | Observation (INO) ==
[2017-12-13 12:36] LABS: Hematocrit 37.1 % (42.0-52.0); Hemoglobin 12.2 gm/dL (13.5-18.0); Mean Cell Volume 95.4 fl (78-100); Mean Corpuscular Hemoglobin 31.4 pg (27-31); Mean Corpuscular Hgb Conc 32.9 g/dl (32-36); Mean Platelet Volume 9.7 fl (8-11.3); Neutrophil # 3.9 K/mm3 (1.3-6.0); Neutrophil % 62.6 % (42-75.0); Platelet Count 257 K/mm3 (150-450); Red Blood Count 3.89 M/mm3 (4.7-6.0); Red Cell Distribution Width 13.7 % (11.5-14.0); White Blood Count 6.2 K/mm3 (4.0-10.5)
[2017-12-13 12:45] LABS: Prothrombin Time (Patient) 10.1 Seconds (9.0-11.0)
[2017-12-13 12:46] LABS: INR 1.01 INR (0.90-1.10); Partial Thrombolplastin Time 23.8 Seconds (24-32)
[2017-12-13] MEDS ORDERED: ASPIRIN 81 MG TAB.CHEW PO ONE (12:47)
--- NOTE | 2017-12-13 12:49 | ERNOTE ---
Chest Pain/Cardiac HPI Date of Service: 12/13/17 Chief Complaint: Chest Pain Time Seen by Provider: 12/13/17 12:38 Source: patient, RN notes reviewed Exam Limitations: no limitations Immunizations: IMMUNIZATION HX Immunizations Up to Date Yes History of Influenza Vaccine Yes Hx Pneumococcal Vaccination No Allergies/Adverse Reactions: Allergies lisinopril Adverse Reaction (Intermediate, Verified 12/13/17 12:17) fluid retention pioglitazone HCl [From Actos] Adverse Reaction (Intermediate, Verified 12/13/17 12:17) fluid retention Home Medications: HOME MEDICATIONS Multivitamin [Multivitamins] 1 ea PO DAILY 06/20/12 [Last Taken Unknown] Glucagon,Human Recombinant [Glucagon Emergency Kit] 1 mg IJ PRN PRN 10/14/12 [Last Taken Unknown] Insulin Glargine,Hum.rec.anlog [Lantus] 80 units SQ BID 09/11/14 [Last Taken Unknown] Nitroglycerin [Nitrostat] 0.4 mg SL Q5MIN PRN #0 btl 09/12/14 [Last Taken Unknown] metFORMIN HCL [Glucophage] 1,000 mg PO BID 03/14/15 [Last Taken Unknown] Clobetasol Propionate/Emoll [Clobetasol Emollient 0.05% Crm] 15 gm TP BID 04/28/17 [Last Taken Unknown] Tazarotene [Tazorac] 30 gm TP DAILY 04/28/17 [Last Taken Unknown] losartan 100 mg tablet 100 mg PO DAILY #90 tab 10/05/17 [Last Taken Unknown] atorvastatin 80 mg tablet 80 mg PO HS #90 tab 11/02/17 [Last Taken Unknown] hydrochlorothiazide 25 mg tablet 25 mg PO DAILY #90 tab 11/02/17 [Last Taken Unknown] insulin aspart U- 100 100 unit/mL subcutaneous cartridge 110 unit SUB-Q AC #9 vial 11/02/17 [Last Taken Unknown] insulin syringe-needle U-100 1 mL 30 gauge x 07/14" See Dose Instructions .ROUTE .MEDSUPPLY #100 ea 11/02/17 [Last Taken Unknown] Narrative: Beto is a 62 year old male who presents to the ED with chest pain. This began last evening and did improve with Motrin. 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 He denies additional symptoms aside from feeling "clammy." He took a baby aspirin this morning but has not had anything for pain. He has a history of a HI with stent placement approximately a year and a half ago. Date (Duration): 12/12/17 Timing: intermittent Severity/Quality: moderate Location: substernal Chest Pain Radiation: no radiation Activities at Onset: activity Nitro Today/Relief: no nitro taken today Aspirin Treatment Today: 81 mg x 1, provided at home Associated Symptoms: Present: diaphoresis. Absent: cough, shortness of breath, nausea, vomiting, abdominal pain Prior Chest Pain/Cardiac Workup: Reports: prior chest pain, heart attack, cardiac cath Prior Treatment: Denies: recently seen Review of Systems - Review of Systems Constitutional: Absent: recent illness, fever, chills EYE: Absent: eye pain, vision changes ENT: Absent: ear pain, nose congestion, sore throat Respiratory: Absent: shortness of breath, cough Cardiology: Present: chest pain. Absent: palpitations, syncope Gastrointestinal/Abdominal: Absent: nausea, vomiting, abdominal pain Genitourinary: Present: no symptoms reported Musculoskeletal: Absent: muscle pain, joint pain Skin: Absent: rash, lesions Neurological: Absent: headache, dizziness/light-headedness Endocrine: Present: no symptoms reported Hematologic/Lymphatic: Absent: easy bruising, easy bleeding Psych: Present: depressed Medical History (Last Reviewed 12/13/17 @ 14:05 by Elli Toussaint NP) Sleep apnea (Chronic) Onset Date: Unknown Hyperlipidemia (Chronic) Onset Date: Unknown Hypertension (Chronic) Onset Date: 09/07/13 Diabetes mellitus, type II (Chronic) Onset Date: Unknown Blindness, legal (Chronic) Onset Date: Unknown Bilateral elbow joint pain Onset Date: 08/05/12 Cubital tunnel syndrome Onset Date: Unknown Excessive weight gain Onset Date: 12/08/13 Medial meniscus tear Onset Date: 06/28/13 Rotator cuff tear, left Onset Date: 02/09/12 Shoulder impingement Onset Date: 02/09/12 Ulnar neuritis Onset Date: 08/05/12 Surgical History: Surgical History (Last Reviewed 12/13/17 @ 14:05 by Elli Toussaint NP) History of ankle surgery Onset Date: Unknown History of arthroscopy of left knee Onset Date: 08/18/12 History of arthroscopy of right knee Onset Date: 04/30/14 History of back surgery Onset Date: Unknown History of colonoscopy Onset Date: 02/18/09 History of eye surgery Onset Date: Unknown History of foot surgery Onset Date: Unknown History of surgery on arm Onset Date: 10/17/12 History of total right knee replacement Onset Date: 05/10/17 S/P cubital tunnel release Onset Date: 11/10/12 Family History: Family History (Last Reviewed 12/13/17 @ 12:17 by Gavi Neves RN) Other Adopted Social History: Preferred Language Polish Smoking Status Unknown if ever smoked Abuse History No History of abuse Psych History No pertinent hx Physical Exam - Physical Exam General Appearance: Present: wd/wn, alert, mild distress, obese Head Exam: Present: normal inspection Eye Exam: Normal inspection: bilateral Neck: Present: normal inspection, nontender, supple Respiratory: Present: no respiratory distress, normal breath sounds, no accessory muscle use, chest nontender, lungs clear Cardiovascular/Chest: Present: regular rate, rhythm, no murmur Gastrointestinal/Abdominal: Present: nontender, soft, distended - Obese Extremity Exam: Present: normal inspection, non-tender, normal range of motion Neurological Exam: Present: alert, oriented, no motor/sensory deficits, other - Flat affect. Absent: normal mood/affect Skin Exam: Present: normal color, diaphoresis ED Progress - Results and Orders Patient's Lab Results:: I have reviewed the patient's lab results. - Vital Signs Patient's Vital Signs:: I have reviewed the patient's vital signs. Vital Signs: Vital Signs 12/13/17 12:13 Temperature 36.0 C Pulse Rate 80 Respiratory Rate 16 Blood Pressure 179/82 H O2 Sat by Pulse Oximetry 97 - EKG EKG: NSR EKG read: Reviewed by me - X-Ray X-Ray #1 X-Ray: chest Interpretation: Reviewed by me X-ray Comments: No acute cardiopulmonary abnormality - Progress/Reassessment Chief Complaint: Chest Pain Progress:: Improved Plan - Plan Plan: Chest pain resolved with one nitro sublingual. EKG and troponin are normal, but given the patient's history, Dr. Baxter was contacted and the patient will be admitted to observation status to rule out HI. Departure Clinical Impression: Chest pain, rule out acute myocardial infarction - Departure Disposition: Still a patient Condition: Stable Referrals: Carlos Baxter DO [Primary Care Provider] -
[2017-12-13 12:52] LABS: ALT 133 U/L (19-67); AST 118 U/L (0-48); Albumin * 3.5 gm/dl (3.4-5.0); Alkaline Phosphatase * 124 U/L (50-170); Anion Gap 12.1 mmol/L (6.8-13.8); BUN/Creatinine Ratio 13.6 (9.0-21.6); Bilirubin, Total 0.7 mg/dL (0.0-1.1); Blood Urea Nitrogen 20 mg/dL (6-23); Ca. Corrected For Albumin 9.2 mg/dL (8.4-10.2); Calcium * 9.1 mg/dL (7.9-10.9); Carbon Dioxide 26.8 mmol/L (24-32.6); Chloride 102 mmol/L (97-106); Glucose * 245 mg/dL (70-110); Potassium 3.9 mmol/L (3.4-4.6); Sodium 137 mmol/L (132-142); Total Protein 7.2 gm/dL (6.2-8.2)
[2017-12-13] MEDS: NITROGLYCERIN 0.4 MG/TAB BTL SL PRN ×2 (12:52→14:25)
[2017-12-13 12:55] LABS: Troponin I Less than 0.017 ng/mL (0.00-0.10)
--- NOTE | 2017-12-13 16:10 | HP ---
Chief Complaint - Chief Complaint Date of Service: 12/13/17 Time of Service: 16:10 Chief Complaint: Chest Pain History of Present Illness: Crystal is a 62 yo male that presented to [facility] ER after coming to work with chest pain. He reports he first was awakened last night with chest pain that was substernal. That pain resolved but it returned while at work. He works in food services at the hospital and when pain did not improve he went to the ER due to his history of CAD. There are no precipitating or alleviating causes to pain. He reports taking all medications as usual. He did have brisket late last night for supper. Medical History (Last Reviewed 12/21/17 @ 10:30 by Nicki Hinkle) Sleep apnea (Chronic) Onset Date: Unknown Hyperlipidemia (Chronic) Onset Date: Unknown Hypertension (Chronic) Onset Date: 09/07/13 Diabetes mellitus, type II (Chronic) Onset Date: Unknown Blindness, legal (Chronic) Onset Date: Unknown Bilateral elbow joint pain Onset Date: 08/05/12 Cubital tunnel syndrome Onset Date: Unknown Excessive weight gain Onset Date: 12/08/13 Medial meniscus tear Onset Date: 06/28/13 Right knee, with loose bodies. Rotator cuff tear, left Onset Date: 02/09/12 Shoulder impingement Onset Date: 02/09/12 Ulnar neuritis Onset Date: 08/05/12 Surgical History: Surgical History (Last Updated 12/21/17 @ 10:34 by Nicki Hinkle) History of ankle surgery Onset Date: Unknown left ankle scope for cartilage damage History of arthroscopy of left knee Onset Date: 08/18/12 History of arthroscopy of right knee Onset Date: 06/28/13 Right with PMM, loose bodies, chondral debridement of MFC and removal of loose bodies. History of back surgery Onset Date: Unknown History of colonoscopy Onset Date: 02/18/09 Dr. Rigo Saez, [facility]. WNL History of eye surgery Onset Date: Unknown bilateral History of foot surgery Onset Date: Unknown Left, removal of bone spur. History of surgery on arm Onset Date: 10/17/12 Dr. Urias. Right ulnar nerve. History of total right knee replacement Onset Date: 05/10/17 Dr. Mark Wilkinson, [facility]. Hx of stent placement Onset Date: ~2015 Dr Teixeira S/P cubital tunnel release Onset Date: 11/10/12 10/17/2012 - right 11/10/2012 - left Family History: Family History (Last Reviewed 12/21/17 @ 10:31 by Nicki Hinkle) Other Adopted Social History: Patient Lives/Resources With Spouse Utilized Occupation environmental maintenance worker Preferred Language Maltese Do you have any evangelical or No cultural preference? Smoking Status Never smoker Have you smoked in the past 12 No months Abuse History No History of abuse Psych History No pertinent hx Alcohol Use occasionally Drug Use none Review Of Systems (GEN) - Review of Systems Generalized/Overall Review: Absent: Weakness, Chills EENTM: Present: No Symptoms Reported Respiratory: Absent: Cough, Shortness of Breath Cardiac: Present: Chest Pain. Absent: Edema Abdominal: Absent: Nausea, Vomiting Genitourinary: Present: No Symptoms Reported Musculoskeletal: Present: No Symptoms Reported Neurological: Present: No Symptoms Reported Skin: Present: No Symptoms Reported Endocrine: Present: No Symptoms Reported Immunizations: IMMUNIZATION HX Immunizations Up to Date Yes History of Influenza Vaccine Yes Hx Pneumococcal Vaccination No Allergies/Adverse Reactions: Allergies Allergy/AdvReac Type Severity Reaction Status Date / Time lisinopril AdvReac Intermediate fluid Verified 12/21/17 10:29 retention pioglitazone HCl [From Actos] AdvReac Intermediate fluid Verified 12/21/17 10:29 retention Home Medications: HOME MEDICATIONS Multivitamin [Multivitamins] 1 ea PO BID 06/20/12 [Last Taken 12/13/17] Glucagon,Human Recombinant [Glucagon Emergency Kit] 1 mg IJ PRN PRN 10/14/12 [Last Taken Unknown] Insulin Glargine,Hum.rec.anlog [Lantus] 80 units SQ BID 09/11/14 [Last Taken 12/13/17] Nitroglycerin [Nitrostat] 0.4 mg SL Q5MIN PRN #0 btl 09/12/14 [Last Taken Unknown] metFORMIN HCL [Glucophage] 1,000 mg PO BID 03/14/15 [Last Taken 12/13/17] Clobetasol Propionate/Emoll [Clobetasol Emollient 0.05% Crm] 15 gm TP BID 04/28/17 [Last Taken 12/13/17] Tazarotene [Tazorac] 30 gm TP DAILY 04/28/17 [Last Taken Unknown] losartan 100 mg tablet 100 mg PO DAILY #90 tab 10/05/17 [Last Taken 12/13/17] atorvastatin 80 mg tablet 80 mg PO HS #90 tab 11/02/17 [Last Taken Unknown] hydrochlorothiazide 25 mg tablet 25 mg PO DAILY #90 tab 11/02/17 [Last Taken 12/13/17] insulin aspart U- 100 100 unit/mL subcutaneous cartridge 110 unit SUB-Q AC #9 vial 11/02/17 [Last Taken 12/13/17] insulin syringe-needle U-100 1 mL 30 gauge x 07/14" See Dose Instructions .ROUTE .MEDSUPPLY #100 ea 11/02/17 [Last Taken Unknown] Aspirin [Aspirin EC] 81 mg PO DAILY 12/13/17 [Last Taken Unknown] nitroglycerin 0.4 mg sublingual tablet 0.4 mg SUBLINGUAL Q5MIN PRN #15 tab 12/21/17 [Last Taken Unknown] Exam - Exam Vital Signs: Vital Signs - Last Taken Temp 36.4 C 12/13/17 14:32 Pulse 70 12/13/17 14:32 Resp 18 12/13/17 14:32 BP 143/63 12/13/17 14:32 Pulse Ox 96 12/13/17 14:32 Constitutional: Present: Alert, Oriented x3, Cooperative, Obese ENT Exam: Present: hearing grossly normal Eye Exam: bilateral eye: normal inspection Respiratory: Present: lungs clear, normal breath sounds Cardiovascular/Chest: Present: regular rate, rhythm, no murmur Abdomen: Present: Normal bowel sounds, soft, nontender, nondistended, no rebound tenderness Extremity: Present: normal inspection Skin Exam: Present: normal color, warm/dry, no cyanosis Neurologic: Present: alert, normal mood/affect, oriented x 3 Appearance: Present: appropriate appearance, appropriate insight Eye contact: Present: cooperative, good eye contact, normal speech Thoughts: Present: normal thought pattern, no apparent hallucination Diagnostic Studies: Abnormal Lab Results 12/13/17 12/13/17 12/13/17 Range/Units 12:25 12:25 12:25 RBC 3.89 L (4.7-6.0) M/mm3 Hgb 12.2 L (13.5-18.0) gm/dL Hct 37.1 L (42.0-52.0) % MCH 31.4 H (27-31) pg Immature Gran % (Auto) 0.50 H (0.001-0.429) % Eosinophils % 3.7 H (0.0-3.0) % Basophils % 1.1 H (0.0-1.0) % Lymphocytes # 1.47 L (1.5-3.5) k/mm3 PTT ([place]) 23.8 L (24-32) Seconds Creatinine 1.47 H D (0.4-1.4) mg/dL Est GFR (Non-Af Amer) 52 L D (60-130) mL/min Random Glucose 245 H (70-110) mg/dL AST 118 H (0-48) U/L ALT 133 H (19-67) U/L Laboratory Results WBC 6.2 K/mm3 (4.0-10.5) 12/13/17 12: RBC 3.89 M/mm3 (4.7-6.0) L 12/13/17 12:25 Hgb 12.2 gm/dL (13.5-18.0) L 12/13/17 12:25 Hct 37.1 % (42.0-52.0) L 12/13/17 12:25 MCV 95.4 fl (78-100) 12/13/17 12: MCH 31.4 pg (27-31) H 12/13/17 12: MCHC 32.9 g/dl (32-36) 12/13/17 12:25 RDW 13.7 % (11.5-14.0) 12/13/17 12:25 Plt Count 257 K/mm3 (150-450) 12/13/17 12:25 MPV 9.7 fl (8-11.3) 12/13/17 12:25 Immature Gran % (Auto) 0.50 % (0.001-0.429) H 12/13/17 12:25 Immature Gran # (Auto) 0.03 K/mm3 (0.000-0.0310) 12/13/17 12: Neutrophils % 62.6 % (42-75.0) 12/13/17 12: Lymphocytes % 23.6 % (20-51) 12/13/17 12: Monocytes % 8.5 % (0.0-9) 12/13/17 12:25 Eosinophils % 3.7 % (0.0-3.0) H 12/13/17 12:25 Basophils % 1.1 % (0.0-1.0) H 12/13/17 12:25 Nucleated RBC % 0.0 k/mm3 (0-1) 12/13/17 12:25 Neutrophils # 3.9 K/mm3 (1.3-6.0) 12/13/17 12:25 Lymphocytes # 1.47 k/mm3 (1.5-3.5) L 12/13/17 12:25 Monocytes # 0.5 k/mm3 (0.0-1.0) 12/13/17 12:25 Eosinophils # 0.2 k/mm3 (0.0-0.7) 12/13/17 12:25 Absolute Basophils 0.1 k/mm3 (0.0-0.1) 12/13/17 12:25 PT 10.1 Seconds (9.0-11.0) 12/13/17 12:25 INR (Anticoag Therapy) 1.01 INR (0.90-1.10) 12/13/17 12:25 PTT ([place]) 23.8 Seconds (24-32) L 12/13/17 12:25 Sodium 137 mmol/L (132-142) 12/13/17 12:25 Plasma Sodium 139 mmol/L (130-142) 12/13/17 12:25 Potassium 3.9 mmol/L (3.4-4.6) 12/13/17 12:25 Chloride 102 mmol/L (97-106) 12/13/17 12:25 Carbon Dioxide 26.8 mmol/L (24-32.6) 12/13/17 12:25 Anion Gap 12.1 mmol/L (6.8-13.8) 12/13/17 12:25 BUN 20 mg/dL (6-23) 12/13/17 12:25 Creatinine 1.47 mg/dL (0.4-1.4) H D 12/13/17 12:25 Est GFR (Non-Af Amer) 52 mL/min (60-130) L D 12/13/17 12:25 BUN/Creatinine Ratio 13.6 (9.0-21.6) 12/13/17 12:25 Random Glucose 245 mg/dL (70-110) H 12/13/17 12:25 Calcium 9.1 mg/dL (7.9-10.9) 12/13/17 12:25 Calcium Adj for Albumin 9.2 mg/dL (8.4-10.2) 12/13/17 12:25 Total Bilirubin 0.7 mg/dL (0.0-1.1) 12/13/17 12:25 AST 118 U/L (0-48) H 12/13/17 12:25 ALT 133 U/L (19-67) H 12/13/17 12:25 Alkaline Phosphatase 124 U/L (50-170) 12/13/17 12:25 Troponin I Less than 0.017 ng/mL (0.00-0.10) 12/13/17 12:25 Total Protein 7.2 gm/dL (6.2-8.2) 12/13/17 12:25 Albumin 3.5 gm/dl (3.4-5.0) 12/13/17 12:25 Assessment/Plan - Assessment/Plan (1) Chest pain Assessment: Pat is a 62 yo male with CAD and chest pain today. Initial evaluation in the ER was negative for acute KS. Will admit to observation on telemetry with repeat troponin. If normal will plan to discharge later today. Problem: Acute Qualifiers: Chest pain type: unspecified Qualified Code(s): R07.9 - Chest pain, unspecified
[2017-12-13] MEDS ORDERED: INSULIN ASPART 100 UNITS/ML VIAL SC SCH (17:00)
--- NOTE | 2017-12-13 19:13 | DS ---
(1) Chest pain Problem: Acute Qualifiers: Chest pain type: unspecified Qualified Code(s): R07.9 - Chest pain, unspecified Description of Stay: Beto is a 62 yo male that was admitted for chest pain that was relieved by nitro. He has a history of CAD but felt that this pain was different than prior angina. His initial work up in the ER was negative for acute MS. He was admitted to observation with repeat troponin and monitoring on telemetry. He had no acute EKG changes, troponin remained normal, and his chest pain remained resolved. He will be discharged to home. With the symptoms awakening him from sleep I suspect this may have been esophageal spasm related to GERD. No changes will be made at this time. Procedures Performed: none Results and Findings: Lab Pending Results 12/13/17 12:25: WBC 6.2, RBC 3.89 L, Hgb 12.2 L, Hct 37.1 L, MCV 95.4, MCH 31.4 H, MCHC 32.9, RDW 13.7, Plt Count 257, MPV 9.7, Immature Gran % (Auto) 0.50 H, Immature Gran # (Auto) 0.03, Neutrophils % 62.6, Lymphocytes % 23.6, Monocytes % 8.5, Eosinophils % 3.7 H, Basophils % 1.1 H, Nucleated RBC % 0.0, Neutrophils # 3.9, Lymphocytes # 1.47 L, Monocytes # 0.5, Eosinophils # 0.2, Absolute Basophils 0.1 12/13/17 12:25: PT 10.1, INR (Anticoag Therapy) 1.01, PTT ([place]) 23.8 L 12/13/17 12:25: Sodium 137, Plasma Sodium 139, Potassium 3.9, Chloride 102, Carbon Dioxide 26.8, Anion Gap 12.1, BUN 20, Creatinine 1.47 H D, Est GFR (Non- Af Amer) 52 L D, BUN/Creatinine Ratio 13.6, Random Glucose 245 H, Calcium 9.1, Calcium Adj for Albumin 9.2, Total Bilirubin 0.7, AST 118 H, ALT 133 H, Alkaline Phosphatase 124, Troponin I Less than 0.017, Total Protein 7.2, Albumin 3.5 12/13/17 18:33: Troponin I 0.018 Discharge Location: Home Disposition: Home self-care Condition: Good Discharge Activity: Activity as tolerated Discharge Diet: Consistent carbs Referrals: Carlos Baxter DO [Primary Care Provider] - (As needed) Problem Oriented Discharge Instructions to Patient/Family: Chest Pain Observation Complete Home Medications List: Complete Home Medication List: Multivitamin [Multivitamins] 1 ea PO BID 06/20/12 Glucagon,Human Recombinant [Glucagon Emergency Kit] 1 mg IJ PRN PRN 10/14/12 Insulin Glargine,Hum.rec.anlog [Lantus] 80 units SQ BID 09/11/14 Nitroglycerin [Nitrostat] 0.4 mg SL Q5MIN PRN #0 btl 09/12/14 metFORMIN HCL [Glucophage] 1,000 mg PO BID 03/14/15 Clobetasol Propionate/Emoll [Clobetasol Emollient 0.05% Crm] 15 gm TP BID 04/28/17 Tazarotene [Tazorac] 30 gm TP DAILY 04/28/17 losartan 100 mg tablet 100 mg PO DAILY #90 tab 10/05/17 atorvastatin 80 mg tablet 80 mg PO HS #90 tab 11/02/17 hydrochlorothiazide 25 mg tablet 25 mg PO DAILY #90 tab 11/02/17 insulin aspart U- 100 100 unit/mL subcutaneous cartridge 110 unit SUB-Q AC #9 vial 11/02/17 insulin syringe-needle U-100 1 mL 30 gauge x 07/14" See Dose Instructions .ROUTE .MEDSUPPLY #100 ea 11/02/17 Aspirin [Aspirin EC] 81 mg PO DAILY 12/13/17 Nitroglycerin [Nitrostat] 0.4 mg SL Q5MIN PRN btl 12/13/17
[2017-12-13 20:47] VITALS: BP 143/62
[2017-12-13] MEDS ORDERED: ROSUVASTATIN CALCIUM 20 MG TABLET PO SCH (21:00)
[2017-12-13] MEDS ORDERED: MULTIVITAMINS 1 CAP CAPSULE PO SCH (21:00)
[2017-12-13] MEDS ORDERED: INSULIN GLARGINE,HUM.REC.ANLOG 100 UNITS/ML VIAL SC SCH (21:00)
[2017-12-14] MEDS ORDERED: LOSARTAN POTASSIUM 50 MG TABLET PO SCH (09:00)
[2017-12-14] MEDS ORDERED: HYDROCHLOROTHIAZIDE 25 MG TABLET PO SCH (09:00)
[2017-12-14] MEDS ORDERED: ASPIRIN 81 MG TABLET.DR PO SCH (09:00)
== END 2017-12-13 19:45 | disposition home or self-care (01) ==
LOC: MS 12:12 → ER 12:12 → MS 14:35
PROVIDERS: ADMIT Family Medicine; ATTEND Family Medicine
CPT/HCPCS: 36415; 71020; 71046; 80053; 84484; 85025; 85610; 85730; 93005; 96372; 99284